=== PATIENT | male | born 1990 | race Caucasian/White ===

== ENCOUNTER 2019-04-17 10:43 | Emergency (ER) | payer SELFPAY ==
[2019-04-17 10:45] VITALS: BMI 25.0
[2019-04-17 10:48] VITALS: BP 128/83; PULSE 68; RESP 16; TEMP 98.7; O2SAT 100
--- NOTE | 2019-04-17 11:15 | C.PDOC ---
History Of Present Illness 28 year old male presents to ED with complaint of burning with urination and yellow discharge that began 1 week ago. Patient states that he came back from a trip from the [place] today and drove in from the airport. He states that he had sex 2 weeks ago while in and the condom broke. He has received no treatment for his symptoms. Patient states that he has never had an STD before. He denies fever, chills, nausea, vomiting, flank pain, and abdominal pain. Denies testicular pain or swelling. No other complaints at this time. Time Seen by Provider: 04/17/19 11:04 Chief Complaint (Nursing): Male Genitourinary History Per: Patient History/Exam Limitations: no limitations Onset/Duration Of Symptoms: Other (2 weeks) Current Symptoms Are (Timing): Still Present Quality Of Discomfort: Burning Associated Symptoms: Urinary Symptoms (yellow discharge). denies: Fever, Chills, Nausea, Vomiting Alleviating Factors: None Recent travel outside of the [place]: Yes Past Medical History Reviewed: Historical Data, Nursing Documentation, Vital Signs Vital Signs: Last Vital Signs Temp 98.7 F 04/17/19 10:45 Pulse 68 04/17/19 10:45 Resp 16 04/17/19 10:45 BP 128/83 04/17/19 10:45 Pulse Ox 100 04/17/19 10:45 Primary Care Provider: FAMILY PROVIDER,NO - Medical History PMH: No Chronic Diseases Surgical History: No Surg Hx Family History: States: Unknown Family Hx - Social History Hx Alcohol Use: No Hx Substance Use: Yes - Immunization History Hx Tetanus Toxoid Vaccination: No Hx Influenza Vaccination: No Hx Pneumococcal Vaccination: No Review Of Systems Except As Marked, All Systems Reviewed And Found Negative. Constitutional: Negative for: Weakness Respiratory: Negative for: Shortness of Breath Gastrointestinal: Negative for: Diarrhea, Constipation Genitourinary: Positive for: Dysuria, Penile Discharge (yellow discharge) Neurological: Negative for: Dizziness Physical Exam - Physical Exam Appears: Well, Non-toxic, No Acute Distress Skin: Normal Color, Warm, Dry Head: Atraumatic, Normacephalic Eye(s): bilateral: Normal Inspection Oral Mucosa: Moist Neck: Normal ROM, Supple Chest: Symmetrical, No Deformity Cardiovascular: Rhythm Regular, No Murmur Respiratory: Normal Breath Sounds, No Rales, No Rhonchi, No Wheezing Gastrointestinal/Abdominal: Soft, No Tenderness Male Genital: No Testicular Tenderness, No Testicular Swelling, No Inguinal Swelling, No Scrotal Swelling, Other (Chaperoned by CHRIS Yee) Extremity: Capillary Refill (<2 seconds) Extremity: Bilateral: Atraumatic Neurological/Psych: Oriented x3, Normal Speech, Normal Cognition ED Course And Treatment O2 Sat by Pulse Oximetry: 100 (in RA) Pulse Ox Interpretation: Normal Medical Decision Making Medical Decision Making: Impression: 28 year old male presents to ED with complaint of burning with urination and yellow discharge. Will rule out GC/C, versus UTI. Initial Plan: UA/UC ordered. GC/Chlamydia ordered. 04/17/19 1153 UA reviewed. UC pending. Will treat with 1g of azithromycin and 250mg IM rocephin for urethritis. Patient aware will need to follow-up with PMD, STI clinic. Will return with any fevers, persistent symptoms, vomiting, abdominal pain, testicular pain. Disposition Counseled Patient/Family Regarding: Studies Performed, Diagnosis, Need For Followup - Disposition Referrals: [facility] [Outside] Disposition: HOME/ ROUTINE Disposition Time: 12:00 Condition: GOOD Additional Instructions: Follow-up with clinic and STI clinic. Return if symptoms worsen or persist. 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 (Christina Bueno) - Scribe Statement The provider has reviewed the documentation as recorded by the Scribe (Christina Bueno) All medical record entries made by the Scribe were at my direction and personally dictated by me. I have reviewed the chart and agree that the record accurately reflects my personal performance of the history, physical exam, medical decision making, and the department course for this patient. I have also personally directed, reviewed, and agree with the discharge instructions and disposition.
[2019-04-17 11:43] LABS: SQUAMOUS EPITHIAL 21 /hpf (0-5); URINE BACTERIA OCC (<OCC); URINE BILIRUBIN NEGATIVE (NEGATIVE); URINE BLOOD NEGATIVE (NEGATIVE); URINE CLARITY Hazy (Clear); URINE COLOR Amber (YELLOW); URINE GLUCOSE (UA) NORMAL (Normal); URINE LEUKOCYTE ESTERASE 2+ Leu/uL (Negative); URINE PROTEIN NEGATIVE (NEGATIVE)
[2019-04-17] MEDS ORDERED: cefTRIAXone 250 MG, Lidocaine Hydrochloride 1% 1 ML IM STA (11:50)
== END 2019-04-17 12:24 | disposition home or self-care (01) ==
LOC: C.ER 10:43
DX: N34.2 Other urethritis (principal)
CPT/HCPCS: 81001; 87086; 87491; 87591; 96372; 99284; J0696